=== PATIENT | female | born 1975 | race Caucasian/White ===

== ENCOUNTER 2022-11-16 01:25 | Emergency (ER) | payer MEDICAID ==
[~2022-11-16] VITALS: Ht 157.5 cm; Wt 90.7 kg
[2022-11-16 02:20] VITALS: BP 150/82; PULSE 65; RESP 18; TEMP 98
[2022-11-16] MEDS ORDERED: HYDROcodone/APAP 5/325 MG 1 TAB TAB PO ONE (04:50)
[2022-11-16] MEDS ORDERED: KETOROLAC 30 MG/ML VIAL IM ONE (04:50)
[2022-11-16] MEDS ORDERED: ACET-8905 PO (05:17)
[2022-11-16 05:40] VITALS: BP 127/72; PULSE 82; RESP 18; TEMP 97.2; O2SAT 98
== END 2022-11-16 05:40 | disposition home or self-care (01) ==
LOC: MED 01:25
DX: K08.89 Other specified disorders of teeth and supporting structures (principal); Z79.899 Other long term (current) drug therapy
CPT/HCPCS: 96372; 99283; J1885

== ENCOUNTER 2023-06-10 02:33 | Emergency (ER) | payer MEDICAID ==
[~2023-06-10] VITALS: Ht 157.5 cm; Wt 104.3 kg
[~2023-06-10 02:33] MED LIST: ACET-8905 PO
[2023-06-10 02:39] VITALS: BP 145/75; PULSE 102; RESP 18; TEMP 98; O2SAT 99
[2023-06-10 03:00] VITALS: BP 131/59; PULSE 94; RESP 18; O2SAT 99
[2023-06-10] MEDS: KETOROLAC 60 MG/2 ML VIAL IM ONE (04:05)
[2023-06-10] MEDS ORDERED: NAPR-54 PO (04:35)
== END 2023-06-10 04:45 | disposition home or self-care (01) ==
LOC: MED 02:33
DX: M77.8 Other enthesopathies, not elsewhere classified (principal); R03.0 Elevated blood-pressure reading, without diagnosis of hypertension; J45.909 Unspecified asthma, uncomplicated; Z79.1 Long term (current) use of non-steroidal anti-inflammatories (NSAID)
CPT/HCPCS: 81025; 96372; 99283; J1885